=== PATIENT | male | born 1970 | race Two or more races ===

== ENCOUNTER 2016-10-29 08:32 | Inpatient (IN) | payer OTHER ==
[2016-10-29 09:43] VITALS: BMI 26.7
--- NOTE | 2016-10-29 15:57 | HP ---
Admission [facility] - [facility] Chief Complaint: I need to stop using Allergies/Adverse Reactions: Allergies Allergy/AdvReac Type Severity Reaction Status Date / Time Penicillins Allergy Verified 10/29/16 15:50 History of Present Illness: pt is a 46yr old male with a history of methamphetaimne dependence. Exam Limitations: No Limitations - Ebola screening Have you traveled outside of the country in the last 21 days: No Have you had contact with anyone from an Ebola affected area: No Have you been sick,other than usual withdrawal symptoms: No - Review of Systems Constitutional: No Symptoms Reported EENT: reports: No Symptoms Reported Respiratory: reports: Cough Cardiac: reports: No Symptoms Reported GI: reports: No Symptoms Reported : reports: No Symptoms Reported Musculoskeletal: reports: No Symptoms Reported Integumentary: reports: No Symptoms Reported Neuro: reports: No Symptoms reported Endocrine: reports: No Symptoms Reported Hematology: reports: No Symptoms Reported Psychiatric: reports: Judgement Intact, Mood/Affect Appropiate, Orientated x3, Agitated, Anxious Other Systems: Reviewed and Negative Patient History - Patient Medical History Hx Anemia: No Hx Asthma: No Hx Chronic Obstructive Pulmonary Disease (COPD): No Hx Cancer: No Hx Cardiac Disorders: No Hx Congestive Heart Failure: No Hx Hypertension: No Hx Hypercholesterolemia: No Hx Pacemaker: No HX Cerebrovascular Accident: No Hx Seizures: No Hx Dementia: No Hx Diabetes: No Hx Gastrointestinal Disorders: No Hx Liver Disease: No Hx Genitourinary Disorders: No Hx Sexually Transmitted Disorders: No Hx Renal Disease (ESRD): No Hx Thyroid Disease: No Hx Human Immunodeficiency Virus (HIV): No (negative) Hx Hepatitis C: No Hx Depression: Yes Hx Suicide Attempt: No (denies) Hx Bipolar Disorder: No Hx Schizophrenia: No Other Medical History: anxiety - Patient Surgical History Past Surgical History: No - PPD History Previous Implant?: Yes Documented Results: Negative w/o proof PPD to be Administered?: Yes - Reproductive History Patient is a Female of Child Bearing Age (11 -55 yrs old): No - Smoking Cessation Smoking history: Current every day smoker Have you smoked in the past 12 months: Yes Aproximately how many cigarettes per day: 10 Hx Chewing Tobacco Use: No Initiated information on smoking cessation: Yes 'Breaking Loose' booklet given: 10/29/16 - Substance & Tx. History Hx Alcohol Use: No Hx Substance Use: Yes Hx Substance Use Treatment: Yes - Substances Abused methamphetamine Route: Smoking Frequency: Daily Amount used: 2 gram Age of first use: 18 Date of Last Use: 10/28/16 Family Disease History - Family Disease History Family Disease History: Diabetes: Father, Heart Disease: Mother Admission Physical Exam [facility] - Vital Signs Vital Signs: Vital Signs - 24 hr 10/29/16 09:07 Temperature 97.3 F L Pulse Rate 89 Respiratory 20 Rate Blood Pressure 154/89 - Physical General Appearance: Yes: Appropriately Dressed, Moderate Distress, Tremorous, Irritable, Sweating, Anxious HEENTM: Yes: Normal Voice, Nasal Congestion Respiratory: Yes: Lungs Clear, Normal Breath Sounds, No Respiratory Distress Neck: Yes: No masses,lesions,Nodules Breast: Yes: Within Normal Limits Cardiology: Yes: Regular Rhythm, Regular Rate, S1, S2, Tachycardia Abdominal: Yes: Normal Bowel Sounds, Non Tender, Soft Genitourinary: Yes: Within Normal Limits Back: Yes: Normal Inspection Musculoskeletal: Yes: full range of Motion, Gait Steady, Pelvis Stable Extremities: Yes: Normal Capillary Refill, Normal Inspection, Tremors Neurological: Yes: Fully Oriented, Alert, Normal Response Integumentary: Yes: Normal Color, Diaphoresis Lymphatic: Yes: Within Normal Limits - Diagnostic (1) Methamphetamine dependence Current Visit: Yes Status: Chronic (2) Nicotine dependence Current Visit: Yes Status: Chronic Qualifiers: Nicotine product type: cigarettes Substance use status: uncomplicated Qualified Code(s): F17.210 - Nicotine dependence, cigarettes, uncomplicated Cleared for Admission [facility] - Detox or Rehab [facility] Level of Care: Medically Managed Claeared for Rehab Admission: Yes [facility] Breath Alcohol Content Breath Alcohol Content: 0 Urine Drug Screen - Results Drug Screen Negative: No Urine Drug Screen Results: AMP-Amphetamines, MET-Methamphetamine, MDMA-Ecstasy, BZO-Benzodiazepines
[2016-10-29] MEDS ORDERED: MAG HYDROX/AL HYDROX/SIMETH 30 ML UNIT-DOSE CUP PO PRN (15:58)
[2016-10-29] MEDS ORDERED: IBUPROFEN 400 MG TABLET (FP) PO PRN (15:58)
[2016-10-29] MEDS ORDERED: LOPERAMIDE HCL 2 MG CAPSULE PO PRN (15:58)
[2016-10-29] MEDS ORDERED: MENTHOL/PHENOL 1 EACH UD MM PRN (15:58)
[2016-10-29] MEDS ORDERED: diphenhydrAMINE HCL 50 MG CAPSULE PO PRN (15:58)
[2016-10-29] MEDS ORDERED: hydrOXYzine PAMOATE 50 MG CAPSULE (FP) PO PRN (15:58)
[2016-10-29] MEDS ORDERED: MAGNESIUM CITRATE 300 ML BOTTLE PO PRN (15:58)
[2016-10-29] MEDS ORDERED: P-EPHED 60MG/TRIPROLIDI 2.5MG TABLET PO PRN (15:58)
[2016-10-29] MEDS ORDERED: NICOTINE POLACRILEX 4 MG GUM BC PRN (15:58)
[2016-10-29] MEDS ORDERED: MAGNESIUM HYDROX 2400MG/30ML ORAL SUSPENSION 30 ML CUP PO PRN (15:58)
[2016-10-29] MEDS ORDERED: ACETAMINOPHEN 325 MG TABLET (FP) PO PRN (15:58)
[2016-10-29] MEDS ORDERED: guaiFENesin/D-METHORPHAN HB 10 ML UNIT-DOSE CUPS PO PRN (15:58)
[2016-10-29] MEDS ORDERED: cloNIDine HCL 0.1 MG TABLET PO ONE (17:00)
[2016-10-29] MEDS ORDERED: TUBERCULIN PPD 5 TU/0.1ML VIAL ID ONE (17:54)
[2016-10-29 20:10] LABS: URINE APPEARANCE CLEAR; URINE BILIRUBIN NEGATIVE (NEGATIVE); URINE BLOOD NEGATIVE (NEGATIVE); URINE COLOR YELLOW; URINE GLUCOSE (UA) NEGATIVE (NEGATIVE); URINE KETONE NEGATIVE (NEGATIVE); URINE LEUK ESTERASE NEGATIVE (NEGATIVE); URINE NITRITE NEGATIVE (NEGATIVE); URINE PROTEIN NEGATIVE (NEGATIVE); URINE UROBILINOGEN NEGATIVE E.U./dl (0.2-1.0)
[2016-10-29] MEDS ORDERED: THIAMINE HCL 100 MG TABLET (FP) PO SCH (22:00)
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
[2016-10-30 07:18] VITALS: BP 138/99; PULSE 66; TEMP 97.8
[2016-10-30] MEDS ORDERED: NICOTINE 21 MG/24 HOURS TOPICAL PATCH TD SCH (10:00)
[2016-10-30] MEDS ORDERED: PRENATAL VITAMINS W/ FOLIC ACID TABLET (FP) PO SCH (10:00)
[2016-10-30 10:01] LABS: MCH 29.4 pg (25.7-33.7); MEAN CELL VOLUME 89.1 fl (80-96); MEAN PLT VOLUME 7.5 fl (7.5-11.1); PLATELET COUNT 271 K/MM3 (134-434); RDW 13.7 % (11.9-15.9); WHITE BLOOD COUNT 6.4 K/mm3 (4.0-10.0)
[2016-10-30 10:47] LABS: HIV 1 & 2 AB NEGATIVE; HIV 1 AGp24 NEGATIVE
[2016-10-30 10:59] LABS: ALBUMIN 3.1 g/dl (3.4-5.0); ALK PHOS 66 U/L (45-117); ANION GAP 9 (8-16); BILIRUBIN,TOTAL 0.2 mg/dL (0.2-1.0); CO2 27 mmol/L (21-32); CREATININE 1.1 mg/dL (0.7-1.3); GLUCOSE,RANDOM 164 mg/dL (74-106); SGOT/AST 15 U/L (15-37); SGPT/ALT 24 U/L (12-78); TOT PROT 5.9 g/dl (6.4-8.2)
--- NOTE | 2016-10-30 12:48 | EKG ---
Test Reason : Blood Pressure : / mmHG Vent. Rate : 071 BPM Atrial Rate : 071 BPM P-R Int : 170 ms QRS Dur : 108 ms QT Int : 402 ms P-R-T Axes : 044 021 020 degrees QTc Int : 436 ms NORMAL SINUS RHYTHM SEPTAL INFARCT , AGE UNDETERMINED ABNORMAL ECG NO PREVIOUS ECGS AVAILABLE Confirmed by MAYRA CANTU MD ([id number]) on 10/30/2016 12:48:39 PM Referred By: Confirmed By:MAYRA CANTU MD
--- NOTE | 2016-10-30 18:15 | PN ---
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
== END 2016-10-30 17:58 | disposition left against medical advice (07) | DRG 894 ==
LOC: EDBD 08:32 → YASAS 08:32 → Y3W 14:07
PROVIDERS: ADMIT Psychiatry & Neurology Psychiatry; ATTEND Psychiatry & Neurology Psychiatry
PROC: HZ42ZZZ Group Counseling for Substance Abuse Treatment, Cognitive-Behavioral (ICD-10-PCS; principal; 2016-10-29)
DX: F15.20 Other stimulant dependence, uncomplicated (principal); F17.210 Nicotine dependence, cigarettes, uncomplicated
CPT/HCPCS: 36415; 80053; 81003; 85027; 86593; 87389; 93005; 93010